=== PATIENT | female | born 1945 ===

== ENCOUNTER 2017-06-23 10:46 | Outpatient (CLI) | payer MEDICARE, BC ==
[2017-06-23] MEDS ORDERED: COLCRYS0.6 M1 PO (14:31)
[2017-06-23] MEDS ORDERED: CELEBREX200 MG ORAL (14:31)
[2017-06-23] MEDS ORDERED: FLUOXETINE HCL20 MG ORAL (14:31)
[2017-06-23] MEDS ORDERED: CALCIUM PO (14:31)
[2017-06-23] MEDS ORDERED: ALGAL OMEGA-3200 MG PO (14:31)
[2017-06-23] MEDS ORDERED: GABAPENTIN100 MG ORAL (14:31)
--- NOTE | 2017-06-23 14:35 | GI Initial Consult Note ---
History of Present Illness General Date patient seen: Jun 23, 2017 Time patient seen: 10:00 Referring physician: NOE Reason for Consultation: Colonoscopy Screening Present Illness HPI 71 year old female patient last seen here in 2008 returns for her routine colonoscopy screening. Hx of hiatal hernia and colonic polyps. She presents today with additional complaints of generalized body rash, diarrhea, and abdominal bloating. Denies any unintentional weight loss or changes in dietary habits. Ambulating with NAD. Home Meds Reported Medications Calcium Carbonate/Vitamin D3 (LIQUID CALCIUM WITH VITAMIN D) 1 Each Capsule, 1 EACH PO, CAP 06/23/17 Fluoxetine Hcl* (FLUOXETINE HCL*) 20 Mg Capsule, 20 MG ORAL DAILY, CAP 06/23/17 Celecoxib* (CELEBREX*) 200 Mg Capsule, 200 MG ORAL DAILY, CAP 06/23/17 Colchicine (COLCRYS) 0.6 Mg Tablet, 0.6 MG PO, TAB 06/23/17 Gabapentin* (GABAPENTIN*) 100 Mg Capsule, 100 MG ORAL THREE TIMES A DAY, CAP 06/23/17 Docosahexanoic Acid (ALGAL OMEGA-3 DHA) 200 Mg Capsule, 200 MG PO, CAP 06/23/17 Med list reviewed/reconciled: Yes Allergies: Coded Allergies: No Known Allergies (Unverified , 06/23/17) Patient History History Provided By: Patient, Medical Record PMH Narrative Arthritis GERD Hiatal Hernia Colonic Polyps PSHx hernia repair left knee surgery toe surgery appendectomy Family History Narrative N/A Social History: Reports: other - coffee Review of Systems All Other Systems: negative except mentioned in HPI Physical Exam NAD General Appearance: normal inspection, well appearing, no apparent distress, alert Head: normocephalic EENT: PERRL/EOMI, normal ENT inspection Neck: normal inspection, full range of motion, supple Respiratory: lungs clear, normal breath sounds Cardiovascular: normal rate Gastrointestinal: normal inspection, non tender, soft Rectal: deferred Musculoskeletal: normal inspection Neurologic: normal inspection, alert, oriented x3, responsive Psychiatric: normal inspection, judgement/insight normal, memory normal Skin: normal inspection, normal color, no rash, warm/dry, palpation normal, well hydrated, normal turgor Lymphatic: normal inspection, no adenopathy GI: Plan Problems: (1) Arthritis (2) Depression (3) GERD (gastroesophageal reflux disease) (4) Colonic polyp (5) Hiatal hernia Plan EGD/colonoscopy 06/29/17. - patient requires colon bx given diarrhea, ? NSAID induced? - CLD & prep instructions given to patient. Breath test after procedure. refer for psychiatric consult, possible Prozac has been inducing body rash Seen with Dr. Taylor. Thank you for referring this patient. Kristel Weaver N.P. Jun 23, 2017 14:35
== END 2017-06-23 11:45 | disposition home or self-care (01) ==
LOC: PAN 10:46
DX: K21.9 Gastro-esophageal reflux disease without esophagitis (principal); M19.90 Unspecified osteoarthritis, unspecified site; F32.9 Major depressive disorder, single episode, unspecified; K63.5 Polyp of colon; K44.9 Diaphragmatic hernia without obstruction or gangrene; R21 Rash and other nonspecific skin eruption; Z90.89 Acquired absence of other organs
CPT/HCPCS: 99201

== ENCOUNTER 2017-08-02 09:57 | Outpatient (CLI) | payer MEDICARE, BC ==
[~2017-08-02 09:57] MED LIST: ALGAL OMEGA-3200 MG PO; CALCIUM PO; CELEBREX200 MG ORAL; COLCRYS0.6 M1 PO; FLUOXETINE HCL20 MG ORAL; GABAPENTIN100 MG ORAL
[2017-08-02 10:08] VITALS: BP 131/63
--- NOTE | 2017-08-02 10:26 | GI Progress Note ---
Assessment/Plan Problems: (1) Gastritis ICD Codes: K29.70 - Gastritis, unspecified, without bleeding SNOMED: 5273479 (2) GERD (gastroesophageal reflux disease) ICD Codes: K21.9 - Gastro-esophageal reflux disease without esophagitis SNOMED: 402582926 (3) Diarrhea ICD Codes: R19.7 - Diarrhea, unspecified SNOMED: 64445568 Status: stable Status Narrative Discussed with Dr. Taylor. Assessment/Plan s/p EGD/colonoscopy SUMMARY FINDINGS reviewed with patient: 1. Gastritis. 2. A 3 cm hiatal hernia. 3. Incompetence of the lower esophageal sphincter. 4. One colonic polyp removed, see above for details. 5. Status post biopsy of the right and left colon for evaluation of diarrhea. 6. Internal and external hemorrhoids. RECOMMENDATIONS: recommend Align cont omeprazole followup biopsy results and treat accordingly >> unremarkable RTC x 3 months/prn repeat colonoscopy x 5 years Subjective Subjective diarrhea, resolved Objective Last 24 Hour Vital Signs Date Time Temp Pulse Resp B/P (MAP) Pulse Ox O2 Delivery O2 Flow Rate FiO2 08/02/17 10:08 98.0 70 16 131/63 General Appearance: no apparent distress, alert, overweight Cardiovascular: normal rate Respiratory/Chest: normal breath sounds, no respiratory distress Abdominal Exam: normal bowel sounds, non tender, soft Extremities: normal range of motion Kristel Weaver N.P. Aug 02, 2017 10:26
== END 2017-08-02 10:40 | disposition home or self-care (01) ==
LOC: PAN 09:57
DX: K29.70 Gastritis, unspecified, without bleeding (principal); K21.9 Gastro-esophageal reflux disease without esophagitis; R19.7 Diarrhea, unspecified; Z86.010 Personal history of colon polyps; E66.3 Overweight; K44.9 Diaphragmatic hernia without obstruction or gangrene; K64.4 Residual hemorrhoidal skin tags; K64.8 Other hemorrhoids
CPT/HCPCS: 99211